=== PATIENT | female | born 1985 | race Hispanic/Latino ===

== ENCOUNTER 2018-01-05 00:02 | Emergency (ER) | payer BC ==
[2018-01-05] MEDS ORDERED: Sodium Chloride 0.9% 1,000 ML IV STA (00:44)
[2018-01-05 01:16] LABS: BASO % 0.3 % (0.0-2.0); EOS # 0.1 K/uL (0.0-0.7); EOS % 1.1 % (0.0-4.0); HEMOGLOBIN 13.6 g/dL (12.0-16.0); LYMPH # 0.8 K/uL (1.0-4.3); LYMPH % 11.6 % (20.0-40.0); MEAN CELL VOLUME 82.7 fl (81.0-99.0); MEAN CORPUSCULAR HEMOGLOBIN 27.5 pg (27.0-31.0); MEAN CORPUSCULAR HGB CONC 33.3 g/dL (33.0-37.0); MEAN PLATELET VOLUME 7.8 fl (7.2-11.7); MONO # 0.3 K/uL (0.0-0.8); MONO % 5.2 % (0.0-10.0); NEUT # 5.5 K/uL (1.8-7.0); NEUT % 81.8 % (50.0-75.0); RBC 4.93 Mil/uL (3.80-5.20); RED CELL DISTRIBUTION WIDTH 21.1 % (11.5-14.5); WHITE BLOOD COUNT 6.8 K/uL (4.8-10.8)
[2018-01-05 01:20] LABS: VENOUS BLOOD GAS BASE EXCESS 4.2 mmol/L (0.0-2.0); VENOUS BLOOD GAS PCO2 44 mmHg (40-60); VENOUS BLOOD GAS PO2 24 mm/Hg (30-55); VENOUS BLOOD PH 7.43 (7.32-7.43)
[2018-01-05 01:26] LABS: ALB/GLOB RATIO 1.4 (1.0-2.1); ALBUMIN 4.5 g/dL (3.5-5.0); ALT/SGPT 43 U/L (9-52); AST/SGOT 34 U/L (14-36); BLOOD UREA NITROGEN 13 mg/dl (7-17); GFR NON-AFRICAN AMERICAN > 60; LIPASE 60 U/L (23-300)
[2018-01-05 01:31] LABS: SQUAMOUS EPITHIAL < 1 /hpf (0-5); URINE BILIRUBIN NEGATIVE (NEGATIVE); URINE BLOOD NEGATIVE (NEGATIVE); URINE CLARITY SLIGHTY-CLOUDY (Clear); URINE COLOR YELLOW (YELLOW); URINE GLUCOSE (UA) NEG (Normal); URINE LEUKOCYTE ESTERASE TRACE Leu/uL (Negative); URINE PROTEIN NEGATIVE (NEGATIVE); URINE UROBILINOGEN 0.2-1.0 mg/dL (0.2-1.0)
[2018-01-05 02:06] VITALS: BP 101/60; PULSE 82; RESP 17; TEMP 98.6; O2SAT 98
--- NOTE | 2018-01-05 02:38 | ED PDOC ---
HPI: Abdomen Time Seen by Provider: 01/05/18 00:19 Chief Complaint (Nursing): Abdominal Pain History Per: Patient History/Exam Limitations: no limitations Onset/Duration Of Symptoms: Hrs Outside of [place] travel?: No Current Symptoms Are (Timing): Still Present Location Of Pain/Discomfort: LLQ Quality Of Discomfort: Cramping Additional Complaint(s): Hx of gastroparesis (resolved, stimulator is de-activated) presenting with abdominal cramping, fever, nausea, and vomiting. States she drank heavily yesterday and thought she was hungover today, but developed 5 episodes of non bloody non bilious vomiting and watery diarrhea as well as fever as high as 103 at home. Could not tolerate even water at home. States her pain in abdomen feels like twisting, comes and goes. No urinary symptoms. Patient breast- feeding. Past Medical History Reviewed: Historical Data, Nursing Documentation, Vital Signs Vital Signs: Last Vital Signs Temp 98.6 F 01/05/18 02:03 Pulse 82 01/05/18 02:03 Resp 17 01/05/18 02:03 BP 101/60 01/05/18 02:03 Pulse Ox 98 01/05/18 02:03 - Surgical History Other surgeries: Gastric Stimulator (de-activated) - Family History Family History: States: Unknown Family Hx - Home Medications Home Medications: Ambulatory Orders Medication Instructions Recorded Metoclopramide [Reglan] 10 mg PO Q12 PRN #12 tab 01/05/18 - Allergies Allergies/Adverse Reactions: Allergies Allergy/AdvReac Type Severity Reaction Status Date / Time prochlorperazine Allergy RASH Verified 01/05/18 00:16 [From Compazine] Review of Systems ROS Statement: Except As Marked, All Systems Reviewed And Found Negative Constitutional: Positive for: Fever Gastrointestinal: Positive for: Nausea, Vomiting, Abdominal Pain, Diarrhea Physical Exam - Reviewed Nursing Documentation Reviewed: Yes Vital Signs Reviewed: Yes - Physical Exam Appears: Positive for: Non-toxic, No Acute Distress, Uncomfortable Head Exam: Positive for: ATRAUMATIC, NORMAL INSPECTION, NORMOCEPHALIC Skin: Positive for: Normal Color, Warm, DRY Eye Exam: Positive for: EOMI, Normal appearance, PERRL ENT: Positive for: Normal ENT Inspection Neck: Positive for: Normal, Painless ROM Cardiovascular/Chest: Positive for: Regular Rate, Rhythm Respiratory: Positive for: CNT, Normal Breath Sounds Gastrointestinal/Abdominal: Positive for: Normal Exam, Soft. Negative for: Tenderness Back: Positive for: Normal Inspection Extremity: Positive for: Normal ROM Neurologic/Psych: Positive for: Alert, mortgage loan officer originator II-XII, Oriented. Negative for: Motor/Sensory Deficits - Laboratory Results Result Diagrams: 01/05/18 01:13 01/05/18 01:13 - ECG O2 Sat by Pulse Oximetry: 98 Pulse Ox Interpretation: Normal Medical Decision Making Medical Decision MakinAM Patient with resolved gastroparesis presenting with abdominal pain, fever, nausea, vomiting, diarrhea --Patient uncomfortable appearing but stable, fever with slight tachycardia --DDx: gastroenteritis v. colitis v. diverticulitis --Currently no abdominal pain, but coming and going --Pain is likely related to dehydration and viral GE 230AM --Patient is feeling much better, states no pain, tolerating PO --Vitals have significantly improved --Patient feels well enough for discharge --[employer] info given --Patient well appearing upon discharge Disposition - Clinical Impression Clinical Impression: Gastroenteritis - Disposition Referrals: [facility]oper [Outside] Disposition: Routine/Home Disposition Time: 02:30 Condition: STABLE Prescriptions: Metoclopramide [Reglan] 10 mg PO Q12 PRN #12 tab PRN Reason: Nausea/Vomiting Instructions: Gastroenteritis (ED) Forms: [employer] ([employer])
== END 2018-01-05 02:30 | disposition home or self-care (01) ==
LOC: H.ER 00:02
DX: K52.9 Noninfective gastroenteritis and colitis, unspecified (principal)
CPT/HCPCS: 80053; 81003; 81025; 82803; 83690; 85025; 96361; 96365; 96375; 99283; J1885; J2765; J7030